=== PATIENT | male | born 1975 | race Caucasian/White ===

== ENCOUNTER 2016-08-07 20:15 | Emergency (ER) | payer OTHER ==
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
--- OUTSIDE RECORDS SUMMARY | 2016-08-07 20:50 | XMS REPORT | Continuity of Care Document ---
:1975 Author Organization [employer] [place] [address] Care Team Providers Name Role Phone Provider, None Per Patient Primary Care Provider Unavailable Source Comments This disclosure is being made pursuant to the [employer] program and maynot contain all information available regarding this patient.[employer] Active Allergies and Adverse Reactions No Known Allergies Current Medications Be aware that medications may not be up to date as of this document. Alwaysverify current medications with the patient. Prescription Sig. Disp. Refills Start Date End Date Status omeprazole (PRILOSEC) Take 1 capsule by 30 capsule 0 07/22/2015 Active 20 MG capsule mouth every morning before breakfast. Active Problems Not on file Immunizations Name Dates Previously Given Next Due Hepatitis B 03/21/2015,02/21/2015 Tdap 09/25/2015, Social History Tobacco Use Types Packs/Day Years Used Date Former Smoker Cigarettes 15 Smokeless Tobacco: Never Used Alcohol Use Drinks/Week oz/Week Comments Yes occassionally Last Filed Vital Signs Vital Sign Reading Time Taken Blood Pressure 128/76 09/25/2015 8:45 PM CDT Pulse 79 09/25/2015 10:51 PM CDT Temperature 36.8 C (98.2 F) 09/25/2015 8:45 PM CDT Respiratory Rate 18 09/25/2015 10:51 PM CDT Height 1.803 m (5' 11") 08/06/2015 2:04 PM CDT Weight 87.091 kg (192 lb) 08/06/2015 2:04 PM CDT Body Mass Index 26.79 08/06/2015 2:04 PM CDT Oxygen Saturation 99% 09/25/2015 10:51 PM CDT Plan of Care Health Maintenance Due Date Last Done Comments Pneumococcal Medium Risk 19-64 yo (1 of 1 07/13/1994 - PPSV23) Retired-INFLUENZA VACCINE 12/30/2015 Tetanus/Pertussis (2 - Td) 09/24/2025 09/25/2015, Results from Last 3 Months Not on file
[2016-08-07] MEDS ORDERED: MORPHINE SULFATE 4 MG/ML SYRG ONE (21:41)
[2016-08-07] MEDS ORDERED: MORPHINE SULFATE 2 MG/ML DISP.SYRIN IV ONE (21:41)
[2016-08-07] MEDS ORDERED: ONDANSETRON HCL/PF 2 MG/ML VIAL IV ONE (21:41)
[2016-08-07] MEDS ORDERED: ONDANSETRON HCL/PF 2 MG/ML VIAL ONE (21:41)
[2016-08-07 21:53] VITALS: BP 125/51
== END 2016-08-07 21:56 | disposition short-term general hospital (02) ==
LOC: ER 20:15
DX: S02.32XA Fracture of orbital floor, left side, initial encounter for closed fracture (principal); S02.2XXA Fracture of nasal bones, initial encounter for closed fracture; Z85.47 Personal history of malignant neoplasm of testis; Y04.8XXA Assault by other bodily force, initial encounter; Y92.149 Unspecified place in prison as the place of occurrence of the external cause